=== PATIENT | male | born 1940 | race Caucasian/White ===

== ENCOUNTER 2016-02-23 12:13 | Emergency (ER) | payer OTHER ==
--- NOTE | 2016-02-23 12:29 | PROVIDER DOCUMENTATION ---
HPI-General Adult <Yashira Beckett - Last Filed: 02/23/16 13:08> - General Source: patient - History of Present Illness -Gen Adult Nature of Presenting Problems: Pt. is 75 yom that presents with c/o a fall at home where he hit his head on the concrete. Pt. denies any LOC. EMS reports the patient has ETOH on board and at time of exam the patient is stating there is nothing wrong with him. Location of Pain/Injury: reports: head. denies: face, mouth, neck, chest, upper extremity, hand(s), abdomen, back, pelvis, genitalia, lower extremity, feet, upper body, lower body, generalized Pain Radiation: reports: no radiation Quality of Pain: reports: aching. denies: burning, cramping, dull, fullness, indigestion, pressure, sharp, stabbing, tearing, throbbing, tightness Severity: reports: mild. denies: moderate, severe Onset/Duration: reports: abrupt, just prior to arrival Timing: reports: still present. denies: improving, gone now, resolved prior to arrival, intermittent, constant, changing over time, getting worse Context/Activities at Onset: reports: light activity, recent trauma history. denies: recent emotional stress, recent physical stress, possible bad food, cold exposure, out of country travel Modifying Factors: improves with: nothing Associated Symptoms: reports: headaches. denies: anxiety, arm pain, back/neck pain, chest pain, constipation, cough, diaphoresis, diarrhea, dizziness, EENT symptoms, fatigue, fever/chills, genitourinary problems, heartburn, joint pain, loss of appetite, malaise, muscle aches, sinus congestion/drainage, nausea, rash , seizure, shortness of breath, sensory/motor loss, pain with inspiration, swelling/mass in abdomen, syncope, vomiting, weakness, trouble walking Similar Symptoms Previously?: No Recently seen or treated by another doctor?: No <Mark Sidhu - Last Filed: 02/23/16 13:12> - General Chief Complaint: Head Injury Stated Complaint: FALL Time Seen by Provider: 02/23/16 12:19 Allergies/Adverse Reactions: Patient Allergies Allergy/AdvReac Type Severity Reaction Status Date / Time No Known Allergies Allergy Verified 01/28/16 15:31 Review of Systems - Adult - REVIEW OF SYSTEMS - ADULT Constitutional: reports: see HPI. denies: chills, fever, fatique Eyes: reports: see HPI. denies: discharge, blurred vision, double vision Ears, Nose, Mouth & Throat: reports: see HPI. denies: ear discharge, ear pain, sinus problem, nose pain, loose teeth, mouth/dental pain, throat pain, throat swelling Cardiovascular: reports: see HPI. denies: chest pain, edema, irregular heart rate, palpitations, syncope Respiratory: reports: see HPI. denies: cough, dyspnea on exertion, hemoptysis, pleurisy, shortness of breath, wheezing Gastrointestinal: reports: see HPI. denies: abdominal pain, hematemesis, diarrhea, nausea, vomiting Genitourinary: reports: see HPI. denies: dysuria, discharge, frequent UTI's, incontinence, urgency Musculoskeletal: reports: see HPI. denies: bone pain, back pain, joint pain, muscle aches, neck pain Integumentary: reports: see HPI. denies: hives, hair loss, itching, rash, skin thickening Neurological: reports: see HPI, headache/migraines. denies: ataxia, numbness, paresthesia, seizure, tremors Psychiatric: reports: see HPI. denies: anxiety, depression, emotional problems , insomnia, panic attacks, suicidal thoughts <Mark Sidhu - Bryson Filed: 02/23/16 13:12> Past History - Adult - PAST MEDICAL HISTORY-ADULT Review of Records: reports: Old Records Reviewed, Nursing Assessment Review, Medications Reviewed, Social history reviewed & non-contributory. Neurological: reports: Alzheimer's (PER PT), dementia - PRIOR SURGERIES/PROCEDURES Surgical/Procedure History: reports: none - IMMUNIZATION STATUS Childhood Immunizations: See Nurse Assessment Flu Vaccine: See Nurse Assessment - FAMILY HISTORY Family History: reviewed, not pertinent <Mark Sidhu - Last Filed: 02/23/16 13:12> Physical Exam-General - PHYSICAL EXAM-ADULT Initial Vital Signs Reviewed: Yes - CONSTITUTIONAL General Appearance: alert, no apparent distress, thin. negative: anxious, lethargic, slow to respond, obtunded, combative - EYES Eyes: PERRL/EOMI, pink conjunctivae. negative: conjuctival exudate, photophobia , subconjunctival hemorrhage - HEAD, EARS, NOSE, MOUTH & THROAT HENMT: moist mucous membranes, other (Hematoma to posterior scalp). negative: angioedema, frontal tenderness, maxillary tenderness - NECK Neck: non-tender, full range of motion, supple, normal inspection. negative: lymphadenopathy, trachial deviation, thyromegaly - RESPIRATORY Respiratory: lungs clear, normal breath sounds. negative: crackles, rales, rhonchi, stridor, wheezing - CARDIOVASCULAR Cardiovascular: normal peripheral pulses, regular rate, rhythm, no edema, no JVD , no murmur. negative: extra beats, friction rub, irregularly irregular - CHEST (BREASTS) Chest/Breast: deferred - GASTROINTESTINAL (ABDOMEN) Abdominal Exam: normal bowel sounds, non tender, soft. negative: distended, guarding, rigid, rebound, tenderness, hernia, mass - GENITOURINARY Male Genitalia: deferred Rectal Exam: deferred Hemoccult Exam: deferred - LYMPHATIC Lymphatic: no adenopathy. negative: axilla node tender, cervical node tenderness - MUSCULOSKELETAL Back Exam: normal inspection, no CVA tenderness, no vertebral tenderness. negative: ecchymosis, muscle spasm, vertebral tenderness Extremity: normal range of motion, non-tender, normal gait, normal inspection. negative: deformity, erythema, inflammation, swelling, tenderness Peripheral Pulses: radial (R): 2+, radial (L): 2+ - SKIN Integumentary: normal color, normal turgor, warm/dry, laceration(s) (1 cm laceration to the lobe of the left ear. There is a small skin tear to the left elbow.). negative: cyanosis, diaphoresis, ecchymosis, erythema, mottled, pallor , petechiae, purpura, rash, swelling, tenderness - NEUROLOGIC Neurologic: grossly normal, no motor/sensory deficits. negative: facial droop, focal weakness, motor weakness, sensory deficit - PSYCHIATRIC Psych/Mental Status: normal mood/affect, normal thought content, normal thought process, oriented x 3. negative: anxious, paranoid, tearful <Mark Sidhu - Last Filed: 02/23/16 13:12> Progress - CT/MRI 1 CT Study: Head Impression: Abnormal (degen changes c spine w mild spinal stenosis c3/c4 ( [place])) CT Results: cerebral atrophy, chronic sinusitis hi density may be fungal, no frx <Yashira Beckett - Last Filed: 02/23/16 13:08> - PLAN OF CARE/RESULTS Progress/Plan/Lab Results: Discussed results and plan of care with patient. Patient agrees with plan and verbalizes understanding. Vital Signs Temp Pulse Resp BP Pulse Ox 02/23/16 12:15 97.5 F L 79 18 147/88 99 No Known Allergies Allergy (Verified 01/28/16 15:31) Alprazolam [Xanax] 0.25 mg PO BID PRN PRN #30 tablet 11/23/15 Potassium Chloride E.r. [Klor-Con] 20 meq PO DAILY #14 tablet 11/23/15 Orders Category Date Time Status HEAD/C-SPINE W/O CONTRAST [CT] Stat Exams 02/23/16 12:23 Taken <Mark Sidhu - Last Filed: 02/23/16 13:12> Procedures - LACERATION/WOUND REPAIR/FB Left Ear Wound Location: Other: Left earlobe Wound Length: 1 cm Wound's Depth, Shape: superficial, linear Wound Explored/Foreign Body: clean, no foreign body found Irrigated with Saline?: Yes Prepped with: Hibiclens Anesthetic: 1%, Lidocaine/Xylocaine Volume of Anesthetic (ml's): 2 Wound Repaired with: Sutures Suture Size/Type: 5.0, Nylon Number of Sutures: 2 Layer Closure?: No Sterile Dressing Applied?: No Splint Applied?: No Sling Applied?: Yes Post Procedure Neurovascular Exam: Intact <Mark Sidhu - Last Filed: 02/23/16 13:12> Departure <Yashira Beckett - Last Filed: 02/23/16 13:08> - Departure Time of Disposition Order: 13:11 Certified Medical Emergency: Emergent <Mark Sidhu - Last Filed: 02/23/16 13:12> - Departure DIAGNOSIS: Laceration Scalp hematoma Qualifiers: Encounter type: initial encounter Qualified Code(s): S00.03XA - Contusion of scalp, initial encounter Skin tear of elbow without complication Qualifiers: Encounter type: initial encounter Laterality: left Qualified Code(s): S51.012A - Laceration without foreign body of left elbow, initial encounter Disposition: HOME 01 Condition: Stable Additional Instructions: Follow up with primary care physician Return to ED in 7 to 10 days for suture removal Return to ED for any concerns or worsening of symptoms ED Follow Up Instructions: You have been treated by a care provider in the Emergency Department. These instructions are being provided to you so you can have an understanding of how to care for yourself upon discharge. Upon discharge from the Emergency Department, you are responsible for making arrangements for follow-up care by a physician of your choice. Take all prescribed medications as directed. Return to the Emergency Department immediately for any new or worsening symptoms. You may call the Physician Referral phone number at [phone] to obtain a list of Physicians who are taking new patients. Attestation - Scribe Verification/Attestation Scribe:: Yashira Beckett Acting as Scribe for:: Mark Sidhu Scribe documention review:: This chart was documented by a scribe and accurately reflects the service the provider performed and the decisions made by the provider. <Yashira Beckett - Last Filed: 02/23/16 13:08> - Physician/ Mid-level Attestation Patient care was provided by Mid-level provider (CANDY FEEDER/PA):: Yes Mid-level provider:: Mark Sidhu Mid-level documentation review:: The Mid-level provider documentation, treatment plan and medical decision making was reviewed by the physician who agrees with all treatment and medical decision making by the P. <Mark Sidhu - Last Filed: 02/23/16 13:12> Physician Attestation
[2016-02-23 13:45] VITALS: BP 130/82
--- NOTE | 2016-02-23 13:48 | Diag Imaging Result Document ---
PROCEDURE NAME: HEAD/C-SPINE W/O CONTRAST - 02/23/2016 CT SCAN OF THE HEAD AND CERVICAL SPINE WITHOUT CONTRAST: FINDINGS: There is diffuse cerebral atrophy. There is no evidence for acute hemorrhage and infarction. Mild deep white matter hypodensity is noted nonspecific in appearance but likely related to microvascular disease. There is opacification of the ethmoid sinuses and high attenuation material within the left maxillary sinus. Findings may indicate fungal sinusitis. Correlate clinically. The calvarium is intact. CERVICAL SPINE: Images of the cervical spine show no evidence for acute fracture or subluxation. There is posterior osteophyte formation producing mild spinal stenosis at C3-C4. There is no precervical soft tissue swelling. IMPRESSION: 1. Atrophy and microvascular disease. 2. High density left maxillary sinus opacification could represent fungal sinusitis. 3. Degenerative change cervical spine with mild spinal stenosis C3-C4. No acute fracture or subluxation.
== END 2016-02-23 13:44 | disposition home or self-care (01) ==
LOC: P.ED 12:13
DX: S01.312A Laceration without foreign body of left ear, initial encounter (principal); S51.012A Laceration without foreign body of left elbow, initial encounter; S00.03XA Contusion of scalp, initial encounter; R51 Headache; M47.9 Spondylosis, unspecified; M48.02 Spinal stenosis, cervical region; W19.XXXA Unspecified fall, initial encounter
CPT/HCPCS: 70450; 72125